=== PATIENT | female | born 1955 | race Caucasian/White ===

== ENCOUNTER 2020-04-26 10:13 | Outpatient (CLI) | payer MEDICARE ==
[2020-04-26] MEDS ORDERED: SODIUM BICARBONATE 4.2%, 5ML ONE (10:45)
[2020-04-26] MEDS ORDERED: LIDOCAINE 1%, 20ML ONE (10:45)
[2020-04-26] MEDS ORDERED: LIDOCAINE 1%-EPI 1:100K, 20ML ONE (10:45)
== END 2020-04-26 23:59 | disposition home or self-care (01) ==
LOC: CFH 10:13
PROVIDERS: ATTEND Surgery
DX: C50.311 Malignant neoplasm of lower-inner quadrant of right female breast (principal)
CPT/HCPCS: 19083; 38505; 76942; 88305; 88361; 77065

== ENCOUNTER → 2020-05-25 | Outpatient (CLI) | payer MEDICARE ==
[~2020-05-25] MED LIST: GADOTERATE 10 MMOL/20 ML VIAL ONE
== END | disposition home or self-care (01) ==
LOC: CFH 10:40
PROVIDERS: ATTEND Surgery
DX: C50.811 Malignant neoplasm of overlapping sites of right female breast (principal); C50.311 Malignant neoplasm of lower-inner quadrant of right female breast; I08.0 Rheumatic disorders of both mitral and aortic valves
CPT/HCPCS: 77049; 93306; A9575; C8937; C8908

== ENCOUNTER 2020-06-24 07:23 | Day surgery (SDC) | payer MEDICARE ==
[~2020-06-24] VITALS: Ht 170.2 cm; Wt 81.8 kg
[~2020-06-24 07:23] MED LIST changes: +ASPI81TA45 PO; +BUPIVACAINE/PF 0.5% ONE; +CHOL10003 PO; +EPINEPHRINE 1 MG/ML, 1ML ONE; -GADOTERATE 10 MMOL/20 ML VIAL ONE; +INSU100C5 SQ-INSULIN; +INSU100V8 SQ; +LEVO112T4 PO; +METO10TA2 PO; +SPIR50TA4 PO; +phenergan; +zofran PO
[2020-06-24] MEDS ORDERED: CHLORHEXIDINE 15 ML UDC MM STA (08:29)
[2020-06-24] MEDS ORDERED: ACETAMINOPHEN 500 MG TABLET PO ONE (08:30)
[2020-06-24] MEDS ORDERED: LACTATED RINGERS 1,000 ML IV SCH (08:30)
[2020-06-24] MEDS ORDERED: GABAPENTIN 300 MG CAPSULE PO ONE (08:30)
[2020-06-24] MEDS ORDERED: MIDAZOLAM 1 MG/ML, 2ML ONE (08:36)
[2020-06-24] MEDS ORDERED: FENTANYL PF 250 MCG/5ML ONE (08:37)
[2020-06-24] MEDS ORDERED: CHLORHEXIDINE 15 ML UDC ONE (08:41)
[2020-06-24] MEDS ORDERED: HYDROmorphone 1 MG/ML, 1ML INJ IVPush PRN (09:00)
[2020-06-24] MEDS ORDERED: PROMETHAZINE 25 MG/ML, 1ML IVPush PRN (09:00)
[2020-06-24] MEDS ORDERED: FENTANYL PF 100 MCG/2ML IV PRN (09:00)
[2020-06-24] MEDS ORDERED: DIPHENHYDRAMINE 50 MG/ML, 1ML IVPush PRN (09:00)
[2020-06-24] MEDS ORDERED: DIAZEPAM 5 MG/ML, 2ML IVPush PRN (09:00)
[2020-06-24] MEDS ORDERED: OXYcodone 5 MG/5 ML ORAL.SOL UDC PO PRN (09:00)
[2020-06-24] MEDS ORDERED: hydrALAzine 20 MG/ML, 1ML IV PRN (09:00)
[2020-06-24] MEDS ORDERED: ONDANSETRON 2MG/ML, 2ML IVPush PRN (09:00)
[2020-06-24] MEDS ORDERED: INSULIN SINGLE DOSE, ER ONE ×3 (09:46→11:33)
[2020-06-24] MEDS ORDERED: INSULIN REGULAR 100 UNITS/ML, 3ML VIAL SQ-INSULIN STA (09:59)
[2020-06-24] MEDS ORDERED: INSULIN REGULAR 100 UNITS/ML, 3ML VIAL SQ-INSULIN SCH (11:00)
[2020-06-24] MEDS ORDERED: CEFAZOLIN 1,000 MG ONE (11:49)
[2020-06-24] MEDS ORDERED: GLYCOPYRROLATE 0.2MG/1ML, 5ML ONE (11:49)
[2020-06-24] MEDS ORDERED: LIDOCAINE-MPF 2% ,5ML ONE (11:49)
[2020-06-24] MEDS ORDERED: NEOSTIGMINE 1 MG/ML, 10ML ONE (11:49)
[2020-06-24] MEDS ORDERED: ROCURONIUM 10MG/ML,5ML ONE (11:49)
[2020-06-24] MEDS ORDERED: METOCLOPRAMIDE 5 MG/ML, 2ML ONE (11:49)
[2020-06-24] MEDS ORDERED: ONDANSETRON 2MG/ML, 2ML ONE (11:49)
[2020-06-24] MEDS ORDERED: PROPOFOL 10 MG/ML, 20ML ONE (11:49)
[2020-06-24] MEDS ORDERED: FENTANYL PF 100 MCG/2ML ONE (14:34)
[2020-06-24] MEDS ORDERED: MEPERIDINE/PF 25MG/ML,1ML ONE (14:34)
[2020-06-24] MEDS: MEPERIDINE/PF 25MG/0.5ML IVPush PRN ×2 (14:37→14:53)
[2020-06-24] MEDS: LABETALOL 20 MG/4 ML IV PRN ×2 (14:44→14:54)
== END 2020-06-24 20:50 | disposition home or self-care (01) ==
LOC: OUT 07:23 → EDSTATUS 10:00 → OUT 20:50
PROVIDERS: ATTEND Surgery
DX: C50.311 Malignant neoplasm of lower-inner quadrant of right female breast (principal); E11.9 Type 2 diabetes mellitus without complications; E03.9 Hypothyroidism, unspecified; F12.90 Cannabis use, unspecified, uncomplicated; K21.9 Gastro-esophageal reflux disease without esophagitis; Z87.891 Personal history of nicotine dependence; Z20.828 Contact with and (suspected) exposure to other viral communicable diseases; Z79.4 Long term (current) use of insulin; Z79.899 Other long term (current) drug therapy; Z79.82 Long term (current) use of aspirin; Z90.49 Acquired absence of other specified parts of digestive tract; Z98.890 Other specified postprocedural states
CPT/HCPCS: 19303; 19366; 36415; 38525; 38792; 76098; 82330; 82803; 82947; 82962; 84132; 84295; 85014; 87635; 88305; 88307; 88329; 88333; 88334; A9541; C1729; J0171; J0690; J1815; J2175; J2250; J2405; J2704; J2710; J2765; J3010; J7120